=== PATIENT | female | born 1945 | race Caucasian/White ===

== ENCOUNTER 2019-04-10 15:44 | Emergency (ER) | payer MEDICARE ==
[~2019-04-10] VITALS: Ht 175.3 cm; Wt 84.8 kg
--- OUTSIDE RECORDS SUMMARY | 2019-04-10 15:46 | XMS ---
PreManage Notification: DANNY VARGAS Security Certified Travel Counselor Events No recent Security Events currently on file CRITERIA MET - 6 ED Visits in 6 Months - [facility] - 3 Facilities in 90 Days - PDMP - [facility] - 2 Visits in 30 Days CARE PROVIDERS LEIGHA YING [facility] Current PHONE: Unknown LEIGHA YING Primary [facility] Current PHONE: Unknown MALACHI OWEN Primary Care Current PHONE: Unknown Anabella has no Care Guidelines for this patient. E.DYenni VISIT COUNT (12 MO.) [facility] Ravin Keita 1 Fili [facility] Gal[facility] TOTAL 12 NOTE: Visits indicate total known visits. ED/UCC VISIT TRACKING (12 MO.) 04/10/2019 15:45 DAVID [facility]ante [place] TYPE: Emergency COMPLAINT: - RESTLESS LEGS 04/07/2019 17:39 [facility] [place] TYPE: Emergency COMPLAINT: - Shoulder Pain DIAGNOSES: - Shoulder Pain - Cellulitis of right toe - Unspecified sprain of left shoulder joint, initial encounter - Fall - Back Pain 04/06/2019 19:45 [facility] TYPE: Emergency COMPLAINT: - Restless leg discomfort DIAGNOSES: - Restless Leg Syndrome - Restless leg discomfort - Restless legs syndrome 03/25/2019 09:03 [facility] Anita JULIAN TYPE: Emergency DIAGNOSES: - Epistaxis - Nose bleed - Epistaxis 02/19/2019 12:11 [facility] Anita JULIAN TYPE: Emergency DIAGNOSES: - nose bleed - Epistaxis Re-evaluation - Epistaxis 02/17/2019 08:05 Fili LeungYenni MANUEL [facility]ECKER [facility]Y TYPE: Emergency DIAGNOSES: - Epistaxis - Epistaxis - nose bleed 02/12/2019 10:08 [facility] [place] TYPE: Urgent Care DIAGNOSES: - Presence of right artificial hip joint - Displaced fracture of lesser trochanter of right femur, initial encounter for closed fracture - Fall - Lower abdominal pain, unspecified 01/03/2019 21:46 Ravin JULIAN TYPE: Emergency DIAGNOSES: - Acute pharyngitis, unspecified - Sore Throat - Acute upper respiratory infection, unspecified - Cough - Other viral agents as the cause of diseases classified elsewhere - sore throat,cough,bodyaches 11[facility]29/2018 [facility] DIAGNOSES: - Finger Laceration - Finger lac - skilled nursing (current) use of anticoagulants - Laceration without foreign body of left thumb without damage to nail, initial encounter 06/20/2018 21:50 DAVID Infante [place] TYPE: Emergency COMPLAINT: - R LEG SWELLING/POST OP ISSUE DIAGNOSES: - Acquired absence of other left toe(s) - Other specified soft tissue disorders - Presence of right artificial knee joint - Personal history of transient ischemic attack (TIA), and cerebral infarction without residual deficits 05/06/2018 08:08 [facility] DIAGNOSES: - Encounter for change or removal of nonsurgical wound dressing - tube removal - Epistaxis Re-evaluation 05/03/2018 09:36 [facility] DIAGNOSES: - Epistaxis - Nose Bleed - Epistaxis 04/18/2018 16:16 [facility] DIAGNOSES: - Multiple Falls - Hallucinations, unspecified - Falls, Confusion - Concussion without loss of consciousness, initial encounter 04/18/2018 15:50 [facility] TYPE: Urgent Care DIAGNOSES: - Fall - Procedure and treatment not carried out due to patient leaving prior to being seen by health care provider INPATIENT VISIT TRACKING (12 MO.) 10/29/2018 06:19 [facility] TYPE: Surgical Services DIAGNOSES: - Presence of unspecified artificial hip joint - Presence of right artificial hip joint - Other instability, right hip 06/11/2018 07:36 [facility] [place] TYPE: Surgical Services DIAGNOSES: - Unilateral primary osteoarthritis, right hip [id number]
== END 2019-04-10 16:03 | disposition home or self-care (01) ==
LOC: ED 15:44
DX: G25.81 Restless legs syndrome (principal)

== ENCOUNTER 2020-04-10 10:58 | Emergency (ER) | payer MEDICARE, OTHER ==
[~2020-04-10] VITALS: Ht 172.7 cm; Wt 85.0 kg
--- OUTSIDE RECORDS SUMMARY | 2020-04-10 11:02 | XMS ---
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 E.Chanel VISIT COUNT (12 MO.) [address] [place] [address] Soledad Keita [address] [place] [address] TOTAL 6 NOTE: Visits indicate total known visits. ED/UCC VISIT TRACKING (12 MO.) 04/10/2020 10:59 DAVID Woods TYPE: Emergency COMPLAINT: - CONSTIPATION 03/28/2020 12:57 [facility] Anita JULIAN TYPE: Emergency DIAGNOSES: - Diarrhea (Adult) - abd pain - Unspecified abdominal pain - Tubulo-interstitial nephritis, not specified as acute or anode builder - Abdominal Pain 03/12/2020 12[facility]23 [facility] DIAGNOSES: - Unspecified injury of head, initial encounter - Headache (Adult - New Onset Or New Symptoms) - Altered Mental Status - Unspecified fall, initial encounter - Fall/Left Arm Pain/Head Confusion - Unspecified sprain of left wrist, initial encounter 02/01/2020 15:11 [facility] DIAGNOSES: - Fever - Fever, unspecified - Fever (75 Years Old Or >) 10/14/2019 13:35 [facility] Anita JULIAN TYPE: Emergency DIAGNOSES: - Multiple Falls - Dizziness and giddiness - Unspecified injury of right wrist, hand and finger(s), initia - Repeated falls - fall - Wrist Injury - Dizziness 06/15/2019 13:09 [facility] J[place]IAN TYPE: Urgent Care DIAGNOSES: - Cutaneous abscess of unspecified foot - Cellulitis of unspecified part of limb - Toe Pain - Non-pressure chronic ulcer of other part of right foot with u 05/14/2019 19:28 [facility] Anita JULIAN TYPE: Emergency DIAGNOSES: - Chest pain/High BP - Unspecified abdominal pain - Chest Pain - Calculus of gallbladder without cholecystitis without obstruc 05/14/2019 19:09 [facility] TYPE: Urgent Care DIAGNOSES: - Procedure and treatment not carried out due to patient leavin - Hypertension 04/10/2019 19:12 [facility] DIAGNOSES: - Restless Legs - Multiple Falls - Dystonia, unspecified - Periodic limb movement disorder - Weakness - Encephalopathy, unspecified - Insomnia, unspecified - Abnormal levels of other serum enzymes - Hallucinations, unspecified - Hallucinations - bilateral leg pain restless leg 04/10/2019 15:45 [facility]ID [facility] [place] TYPE: Emergency COMPLAINT: - RESTLESS LEGS DIAGNOSES: - Restless legs syndrome INPATIENT VISIT TRACKING (12 MO.) No inpatient visits to display in this time frame [email or web address]
--- NOTE | 2020-04-10 13:13 | EKG ---
[facility] [address] [place], [place] [address] Signed Atrial fibrillation with rapid ventricular response Inferior infarct , age undetermined Cannot rule out Anterior infarct , age undetermined Abnormal ECG No previous ECGs available Confirmed by ANN RAM MD ([id number]) on 04/10/2020 1:13:35 PM Electronically Signed By: ANN RAM MD 04/10/20 1313 PATIENT NAME: DANNY VARGAS Electrocardiogram DATE OF : 41 PHYSICIAN: ANN RAM MD REPORT #: [id number] REPORT IS CONFIDENTIAL AND NOT TO BE RELEASED WITHOUT AUTHORIZATION
[2020-04-10] MEDS ORDERED: FUROSEMIDE20 MG PO (13:34)
[2020-04-10] MEDS ORDERED: POTASSIUM CHLO20 ME1 PO (13:35)
[2020-04-10] MEDS ORDERED: PRAMIPEXOLE DIHY1 MG PO (13:36)
[2020-04-10] MEDS ORDERED: SERTRALINE HCL100 MG PO (13:37)
[2020-04-10] MEDS ORDERED: XARELTO20 MG PO (13:38)
[2020-04-10] MEDS ORDERED: OXYCODONE-ACET1 EAC1 PO (13:39)
[2020-04-10] MEDS ORDERED: DOCUSATE SODIU100 MG PO (13:42)
[2020-04-10] MEDS ORDERED: FERROUS SULFAT325 MG PO (13:43)
[2020-04-10] MEDS ORDERED: MAGNESIUM OXID400 M1 PO (13:44)
[2020-04-10] MEDS ORDERED: MIRAPEX1 MG PO (13:44)
[2020-04-10] MEDS ORDERED: METOPROLOL TART50 MG PO (13:44)
[2020-04-10] MEDS ORDERED: SULFAMETHOXAZO1 EAC1 PO (19:26)
== END 2020-04-10 22:11 | disposition short-term general hospital (02) ==
LOC: ED 10:58
DX: M00.9 Pyogenic arthritis, unspecified (principal); R10.9 Unspecified abdominal pain; I48.91 Unspecified atrial fibrillation; E87.1 Hypo-osmolality and hyponatremia; Z86.73 Personal history of transient ischemic attack (TIA), and cerebral infarction without residual deficits; Z88.8 Allergy status to other drugs, medicaments and biological substances; Z79.899 Other long term (current) drug therapy
CPT/HCPCS: 71045; 73610; 74177; 80053; 81001; 82150; 83605; 83690; 85025; 85651; 93005; 93010; 99285-25; Q9967

== ENCOUNTER 2020-11-29 14:20 | Emergency (ER) | payer MEDICARE, OTHER ==
[~2020-11-29] VITALS: Ht 172.7 cm; Wt 68.2 kg
[~2020-11-29 14:20] MED LIST: DOCUSATE SODIU100 MG PO; FERROUS SULFAT325 MG PO; FUROSEMIDE20 MG PO; MAGNESIUM OXID400 M1 PO; METOPROLOL TART50 MG PO; MIRAPEX1 MG PO; OXYCODONE-ACET1 EAC1 PO; POTASSIUM CHLO20 ME1 PO; PRAMIPEXOLE DIHY1 MG PO; SERTRALINE HCL100 MG PO; SULFAMETHOXAZO1 EAC1 PO; XARELTO20 MG PO
--- NOTE | 2020-11-30 03:12 | EKG ---
[facility] [address] [facility] [facility] [place] [address] Signed Atrial-paced rhythm with prolonged AV conduction Possible Inferior infarct (cited on or before 10-APR-2020) Abnormal ECG When compared with ECG of 10-APR-2020 11:37, Electronic atrial pacemaker has replaced Atrial fibrillation Minimal criteria for Anterior infarct are no longer present Nonspecific T wave abnormality, improved in Anterolateral leads Confirmed by NESHA HORTON MD ([id number]) on 11/30/2020 3:12:32 AM Electronically Signed By: NESHA HORTON MD 11/30/20 031 PATIENT NAME: DANNY VARGAS Electrocardiogram DATE OF : 41 PHYSICIAN: NESHA HORTON MD REPORT #: [id number] REPORT IS CONFIDENTIAL AND NOT TO BE RELEASED WITHOUT AUTHORIZATION
== END 2020-11-29 16:37 | disposition home or self-care (01) ==
LOC: ED 14:20
DX: R07.9 Chest pain, unspecified (principal); I50.9 Heart failure, unspecified; I48.91 Unspecified atrial fibrillation; Z88.8 Allergy status to other drugs, medicaments and biological substances; Z79.899 Other long term (current) drug therapy; Z79.01 Long term (current) use of anticoagulants
CPT/HCPCS: 71045; 80053; 83735; 84484; 85025; 85610; 93005; 93010; 99285-25

== ENCOUNTER 2020-12-28 08:29 | Emergency (ER) | payer MEDICARE, OTHER ==
[~2020-12-28] VITALS: Ht 172.7 cm; Wt 68.2 kg
--- OUTSIDE RECORDS SUMMARY | 2020-12-28 08:46 | XMS ---
PreManage Notification: DANNY VARGAS Security Surgery Attendant Events No recent Security Events currently on file CRITERIA MET - [facility] - 2 Visits in 30 Days CARE PROVIDERS DEONNA Valle [facility] Current PHONE: [phone] Román ANDERSEN Nurse Practitioner: Family Current PHONE: [phone] CHELSEY REYES [facility] Current PHONE: [phone] Anabella has no Care Guidelines for this patient. EScarlet VISIT COUNT (12 MO.) 3 [facility]ado 4 [facility] Pink Vanessa TOTAL 10 NOTE: Visits indicate total known visits. ED/UCC VISIT TRACKING (12 MO.) 12/28/2020 08:29 DAVID [facility]ante [place] TYPE: Emergency COMPLAINT: - R SIDE ABDOMINAL PAIN 12/26/2020 [facility] DIAGNOSES: - Bacteremia - Decreased white blood cell count, unspecified - keno terminal operator (current) use of antibiotics - Extradural and subdural abscess, unspecified - Abdominal Pain - Right upper quadrant pain - Chronic kidney disease, stage 1 - Unspecified abdominal pain - Osteomyelitis of vertebra, thoracic region - Methicillin resistant Staphylococcus aureus infection as the cause of diseases classified elsewhere - stomach pain 11/29/2020 14:21 DAVID [facility] [place] TYPE: Emergency COMPLAINT: - CHEST PAIN, FATIGUE, DROOPINESS DIAGNOSES: - Other exterminator helper termite (current) drug therapy - keno terminal operator (current) use of anticoagulants - Chest pain, unspecified - Unspecified atrial fibrillation - Allergy status to other drugs, medicaments and biological substances - Heart failure, unspecified 06/16/2020 16:57 Mario [facility] TYPE: Emergency DIAGNOSES: - Abdominal Pain 06/02/2020 18:32 Mario [facility] TYPE: Emergency DIAGNOSES: - Acute pyelonephritis - Leg Pain 05/04/2020 10:56 Mario Ly [place] TYPE: Emergency DIAGNOSES: - Chest pain, unspecified - Chest Pain 04/10/2020 10:59 DAVID [facility]ante [place] TYPE: Emergency COMPLAINT: - ANKLE PN DIAGNOSES: - Pain in right ankle and joints of right foot - Allergy status to other drugs, medicaments and biological substances - Personal history of transient ischemic attack (TIA), and cerebral infarction without residual deficits - Hypo-osmolality and hyponatremia - Pyogenic arthritis, unspecified - Unspecified abdominal pain - Other exterminator helper termite (current) drug therapy - Unspecified atrial fibrillation 03/28/2020 12:57 [facility] DIAGNOSES: - Diarrhea (Adult) - abd pain - Unspecified abdominal pain - Tubulo-interstitial nephritis, not specified as acute or chronic - Abdominal Pain 03/12/2020 12:23 [facility] DIAGNOSES: - Unspecified injury of head, initial encounter - Headache (Adult - New Onset Or New Symptoms) - Altered Mental Status - Unspecified fall, initial encounter - Fall/Left Arm Pain/Head Confusion - Unspecified sprain of left wrist, initial encounter 02/01/2020 15:11 [facility] DIAGNOSES: - Fever - Fever, unspecified - Fever (75 Years Old Or >) INPATIENT VISIT TRACKING (12 MO.) 06/21/2020 04:42 [facility] TYPE: General Medicine DIAGNOSES: 92743. Methicillin susceptible Staphylococcus aureus infection, unspecified site 33478. Osteomyelitis, unspecified 93764. Osteomyelitis of the spine 82386. Bacteremia 61124. Osteomyelitis, unspecified 49152. keno terminal operator (current) use of antibiotics 72798. Methicillin susceptible Staphylococcus aureus infection, unspecified site 70885. Methicillin resistant Staphylococcus aureus infection as the cause of diseases classified elsewhere 06/16/2020 16:57 Mario Ly [place] TYPE: Medical Surgical COMPLAINT: - Abdominal Pain DIAGNOSES: - Abdominal Pain 04/21/2020 00:28 [facility] TYPE: Internal Medicine DIAGNOSES: 49815. Bacteremia 55695. infected pacemaker 74092. Intraspinal abscess and granuloma 53354. Bacteremia 04/11/2020 00:52 [facility] TYPE: Inpatient DIAGNOSES: 0. AFIB WITH RVR [email or web address]
== END 2020-12-28 12:12 | disposition home or self-care (01) ==
LOC: ED 08:29
DX: K59.00 Constipation, unspecified (principal); I48.91 Unspecified atrial fibrillation; I50.9 Heart failure, unspecified; Z88.8 Allergy status to other drugs, medicaments and biological substances; Z79.899 Other long term (current) drug therapy
CPT/HCPCS: 76705; 80053; 81001; 83690; 85025; 96374; 99284-25; J1170; J7030

== ENCOUNTER 2021-05-31 04:28 | Emergency (ER) | payer MEDICARE, OTHER ==
--- OUTSIDE RECORDS SUMMARY | 2021-05-31 04:32 | XMS ---
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 Care History Medical/Surgical 12/29/2020 [facility] - Patient is currently established with [facility]. If patient is seen in the ED during business hours. Please contact CHWs at [facility]. Care Recommendation: If this patient has had 5 or more Emergency Department visits in the last 12 months.\T\nbsp; Patient will require education on the scope and purpose of the ED as an acute care provider not a Primary Care Provider and should not be utilized for chronic conditions.\T\nbsp; These are guidelines and the provider should exercise clinical judgment when providing care. E.D. VISIT COUNT (12 MO.) 2 Mario Mercado 2 [facility] 4 [facility] TOTAL 8 NOTE: Visits indicate total known visits. ED/UCC VISIT TRACKING (12 MO.) 05/31/2021 04:30 DAVID Infante [place] TYPE: Emergency COMPLAINT: - GLF,LACERATION LT FOREARM 04/27/2021 03[facility] DIAGNOSES: - Other group home (current) drug therapy - Unspecified fall, initial encounter - Encephalopathy, unspecified - fall head lac - Head Laceration - Fall - Restlessness and agitation - Repeated falls - Unspecified place in unspecified non-institutional (private) residence as the place of occurrence of the external cause - Contusion of scalp, initial encounter 02/14/2021 12:33 DAVID Infante [place] TYPE: Emergency COMPLAINT: - FLU SYMPTOMS 12/28/2020 08:29 DAVID [facility] [place] TYPE: Emergency COMPLAINT: - R SIDE ABDOMINAL PAIN DIAGNOSES: - Constipation, unspecified - Other group home (current) drug therapy - Allergy status to other drugs, medicaments and biological substances - Right upper quadrant pain - Unspecified atrial fibrillation - Heart failure, unspecified 12/26/2020 11:03 [facility] [place] [facility]: Emergency DIAGNOSES: - Bacteremia - Decreased white blood cell count, unspecified - terminal block assembler (current) use of antibiotics - Extradural and [...] CHEST PAIN, FATIGUE, DROOPINESS DIAGNOSES: - Other terminal operations supervisor (current) drug therapy - snf (current) use of anticoagulants - Chest pain, unspecified - Unspecified atrial fibrillation - Allergy status to other drugs, medicaments and biological substances - Heart failure, unspecified 06/16/2020 16:57 [facility]oria [facility]ig [place] TYPE: Emergency DIAGNOSES: - Abdominal Pain 06/02/2020 18:32 A[facility]ailgloria Rogelio [place] TYPE: Emergency DIAGNOSES: - Acute pyelonephritis - Leg Pain INPATIENT VISIT TRACKING (12 MO.) 06/21/2020 04:42 [facility] TYPE: General Medicine DIAGNOSES: 22253. Methicillin susceptible Staphylococcus aureus infection, unspecified site 42308. Osteomyelitis, unspecified 53430. Osteomyelitis of the spine 33267. Bacteremia 34765. Osteomyelitis, unspecified 97652. terminal block assembler (current) use of antibiotics 81870. Methicillin susceptible Staphylococcus aureus infection, unspecified site 90167. Methicillin resistant Staphylococcus aureus infection as the cause of diseases classified elsewhere 06/16/2020 16:57 Leggloria [facility] TYPE: Medical Surgical COMPLAINT: - Abdominal Pain DIAGNOSES: - Abdominal Pain [id number]
== END 2021-05-31 05:30 | disposition home or self-care (01) ==
LOC: ED 04:28
DX: S51.812A Laceration without foreign body of left forearm, initial encounter (principal); S40.022A Contusion of left upper arm, initial encounter; I50.9 Heart failure, unspecified; I48.91 Unspecified atrial fibrillation; Z86.73 Personal history of transient ischemic attack (TIA), and cerebral infarction without residual deficits; Z95.0 Presence of cardiac pacemaker; Z96.653 Presence of artificial knee joint, bilateral; Z89.422 Acquired absence of other left toe(s); Z89.421 Acquired absence of other right toe(s); Z88.8 Allergy status to other drugs, medicaments and biological substances; Z79.899 Other long term (current) drug therapy; Z23 Encounter for immunization; Z79.01 Long term (current) use of anticoagulants; W19.XXXA Unspecified fall, initial encounter; Y92.009 Unspecified place in unspecified non-institutional (private) residence as the place of occurrence of the external cause
CPT/HCPCS: 90471; 90714; 99283-25

== ENCOUNTER 2021-10-14 11:52 | Emergency (ER) | payer MEDICARE, OTHER ==
[~2021-10-14] VITALS: Ht 172.7 cm; Wt 65.9 kg
--- OUTSIDE RECORDS SUMMARY | 2021-10-14 11:56 | XMS ---
PreManage Notification: DANNY VARGAS Security English Adjunct Faculty Events 1 event(s) in the past 18 months Most recent security events: Elopement at [facility] 02/14/2021 12:33 - Other Details: PATIENT LWBS CRITERIA MET - PDMP - ED - Positive COVID-19 Lab Result - OHA - [facility] - 2 Visits in 30 Days - [facility] - Has Care Guidelines CARE PROVIDERS DEONNA Valle [facility] Current PHONE: [phone] ADITI AC [facility] 12/29/2020-Current PHONE: [phone] Román ANDERSEN Nurse Practitioner: Family Current PHONE: [phone] [facility] PHONE: [phone] Anabella has no Care Guidelines for this patient. Care History Medical/Surgical 06/02/2021 [facility] Patient seen by PCP Dr. Ac today, 06/02/2021 for ER follow up . 12/29/2020 [facility] - Patient is currently established with [facility]. If patient is seen in the ED during business hours. Please contact CHWs at [facility]. Care Recommendation: If this patient has had [...] providing care. E.D. VISIT COUNT (12 MO.) 1 [facility] 2 [facility] 5 [facility]. TOTAL 8 NOTE: Visits indicate total known visits. ED/UCC VISIT TRACKING (12 MO.) 10/14/2021 11:53 DAVID Infante [place] TYPE: Emergency COMPLAINT: - NOSE BLEED 10/06/2021 14:26 [facility] [place] . TYPE: Emergency COMPLAINT: - bloody nose DIAGNOSES: - Epistaxis - bloody nose - Epistaxis 05/31/2021 04:30 DAVID Infante [place] TYPE: Emergency COMPLAINT: - GLF,LACERATION LT FOREARM DIAGNOSES: - Unspecified atrial fibrillation - senior living (current) use of anticoagulants - Contusion of left upper arm, initial encounter - Acquired absence of other left toe(s) - Presence of artificial knee joint, bilateral - Encounter for immunization - Unspecified fall, initial encounter - Presence of cardiac pacemaker - Unspecified place in unspecified non-institutional (private) residence as the place of occurrence of the external cause - Allergy status to other drugs, medicaments and biological substances - Acquired absence of other right toe(s) - Heart failure, unspecified - Personal history of transient ischemic attack (TIA), and cerebral infarction without residual deficits - Laceration without foreign body of left forearm, initial encounter - Other sole tacker (current) drug therapy 04/27/2021 03:[address] [facility] [address] DIAGNOSES: - Other fci (current) drug therapy - Unspecified fall, initial [...] PAIN DIAGNOSES: - Constipation, unspecified - Other sole tacker (current) drug therapy - Allergy status to other drugs, medicaments and biological substances - Right upper quadrant pain - Unspecified atrial fibrillation - Heart failure, unspecified 12/26/2020 11:03 [facility] Anita JULIAN TYPE: Emergency DIAGNOSES: - Bacteremia - Decreased white blood cell count, unspecified - machine sander (current) use of antibiotics - Extradural and subdural abscess, unspecified - Abdominal Pain - Right upper quadrant pain - Chronic kidney disease, stage 1 - Unspecified abdominal pain - Osteomyelitis of vertebra, thoracic region - Methicillin resistant Staphylococcus aureus infection as the cause of diseases classified elsewhere - stomach pain 11/29/2020 14:21 [facility] [address] [facility] TYPE: Emergency COMPLAINT: - CHEST PAIN, FATIGUE, DROOPINESS DIAGNOSES: - Other fci (current) drug therapy - machine sander (current) use of anticoagulants - Chest pain, unspecified - Unspecified atrial fibrillation - Allergy status to other drugs, medicaments and biological substances - Heart failure, unspecified INPATIENT VISIT TRACKING (12 MO.) No inpatient visits to display in this time frame [id number]
[2021-10-14] MEDS ORDERED: ELIQUIS5 MG PO (12:08)
[2021-10-14] MEDS ORDERED: IPRATROPIUM BRO30 ML NAS (12:08)
[2021-10-14] MEDS ORDERED: OMEPRAZOLE40 MG PO (12:09)
[2021-10-14] MEDS ORDERED: GABAPENTIN600 MG PO (12:09)
[2021-10-14] MEDS ORDERED: OXYBUTYNIN CHLO10 MG PO (12:09)
== END 2021-10-14 15:29 | disposition home or self-care (01) ==
LOC: ED 11:52
DX: R04.0 Epistaxis (principal); Z86.73 Personal history of transient ischemic attack (TIA), and cerebral infarction without residual deficits; I48.91 Unspecified atrial fibrillation; I50.9 Heart failure, unspecified; Z79.899 Other long term (current) drug therapy; Z88.8 Allergy status to other drugs, medicaments and biological substances; Z79.01 Long term (current) use of anticoagulants
CPT/HCPCS: 30901; 99283-25

== ENCOUNTER 2022-05-15 08:42 | Emergency (ER) | payer MEDICARE, OTHER ==
[~2022-05-15] VITALS: Ht 172.7 cm; Wt 73.5 kg
[~2022-05-15 08:42] MED LIST changes: +ELIQUIS5 MG PO; +GABAPENTIN600 MG PO; +IPRATROPIUM BRO30 ML NAS; +MIRAPEX0.5 MG PO; +OMEPRAZOLE40 MG PO; +OXYBUTYNIN CHLO10 MG PO
--- OUTSIDE RECORDS SUMMARY | 2022-05-15 08:44 | XMS ---
PreManage Notification: DANNY VARGSA Security Crime Specialist Events 1 event(s) in the past 18 months Most recent security events: Elopement at [facility] 02/14/2021 12:33 - Other Details: PATIENT LWBS CRITERIA MET - PDMP - [facility] - Has Care Guidelines CARE PROVIDERS DEONNA Valle [facility] Current PHONE: [phone] SHERIN AGRAWAL Orthopaedic Surgery Tamra Abdi PHONE: [phone] ADITI AC [facility] 12/29/2020-Current PHONE: Unknown Román ANDERSEN Nurse Practitioner: Family Current PHONE: [phone] AMY [facility] Current PHONE: [phone] Anabella has no Care Guidelines for this patient. Care History Medical/Surgical 06/02/2021 [facility] Patient seen by PCP Dr. Ac today, 06/02/2021 for ER follow up . 12/29/2020 [facility] - Patient is currently established with [facility]. If patient is seen in the ED during business hours. Please contact CHWs at [facility]. Care Recommendation: If this patient has [...] care. E.D. VISIT COUNT (12 MO[address] [facility]. 6 [facility]. TOTAL 7 NOTE: Visits indicate total known visits. ED/UCC VISIT TRACKING (12 MO.) 05/15/2022 08:43 [facility] [place] TYPE: Emergency COMPLAINT: - R KNEE PAIN 03/14/2022 10:47 [facility] [place] TYPE: Emergency COMPLAINT: - UNCONTROLLABLE SHAKING, FATIGUE DIAGNOSES: - Restless legs syndrome 02/07/2022 16:22 [facility] [place] TYPE: Emergency COMPLAINT: - FALL DIAGNOSES: - Presence of cardiac pacemaker - Fall from bed, initial encounter - shelter (current) use of anticoagulants - Strain of muscle, fascia and tendon at neck level, initial encounter - Personal history of transient ischemic attack (TIA), and cerebral infarction without residual deficits - Contusion of scalp, initial encounter - Presence of artificial knee joint, bilateral - Allergy status to other drugs, medicaments and biological substances - Other parts counterman (current) drug therapy - Headache, unspecified - Heart failure, unspecified 02/07/2022 14:36 [facility] TYPE: Emergency COMPLAINT: - FALL 10/14/2021 11:53 [facility] [place] TYPE: Emergency COMPLAINT: - NOSE BLEED DIAGNOSES: - Allergy status to other drugs, medicaments and biological substances - Unspecified atrial fibrillation - Other care home (current) drug therapy - terminal operator (current) use of anticoagulants - Heart failure, unspecified - Personal history of transient ischemic attack (TIA), and cerebral infarction without residual deficits - Epistaxis 10/06/2021 14:26 [facility] [place] TYPE: Emergency COMPLAINT: - bloody nose DIAGNOSES: - bloody nose - Epistaxis - Epistaxis 05/31/2021 04:30 [facility] [place] TYPE: Emergency COMPLAINT: - GLF,LACERATION LT FOREARM DIAGNOSES: - Other parts counterman (current) drug therapy - Encounter for immunization - Personal history of transient ischemic attack (TIA), and cerebral infarction without residual deficits - Acquired absence of other left toe(s) - Acquired absence of other right toe(s) - terminal operator (current) use of anticoagulants - Unspecified place in unspecified non-institutional (private) residence as the place of occurrence of the external cause - Unspecified fall, initial encounter - Laceration without foreign body of left forearm, initial encounter - Presence of artificial knee joint, bilateral - Heart failure, unspecified - Contusion of left upper arm, initial encounter - Allergy status to other drugs, medicaments and biological substances - Unspecified atrial fibrillation - Presence of cardiac pacemaker INPATIENT VISIT TRACKING (12 MO.) No inpatient visits to display in this time frame [email or web address]
[2022-05-15] MEDS ORDERED: HYDROCODON-ACE1 EA10 PO (09:20)
== END 2022-05-15 09:38 | disposition home or self-care (01) ==
LOC: ED 08:42
DX: M25.561 Pain in right knee (principal); I50.9 Heart failure, unspecified; I48.91 Unspecified atrial fibrillation; Z88.8 Allergy status to other drugs, medicaments and biological substances; Z79.899 Other long term (current) drug therapy
CPT/HCPCS: 73560; 99283-25

== ENCOUNTER 2022-06-14 06:55 | Day surgery (SDC) | payer MEDICARE, OTHER ==
[~2022-06-14] VITALS: Ht 172.7 cm; Wt 74.1 kg
[~2022-06-14 06:55] MED LIST changes: +HYDROCODON-ACE1 EA10 PO
[2022-06-14] MEDS ORDERED: SOLIFENACIN SUC10 MG PO (07:24)
[2022-06-14] MEDS ORDERED: CALCIUM500 MG PO (07:27)
--- NOTE | 2022-06-14 08:42 | NUR ---
06/14/22 0842 Octavia Hanson 0848-PATIENT ARRIVED TO PACU ON RA EVEN HOB ELEVATED. PATIENT NONAROUSABLE O2 MONITOR CONNECTED AND O2 DESAT TO LOW 80'S. PATIENT WAS JAW THRUSTED BY CAROLINA SALINAS AND MOUTH SUCTIONED SMALL AMT OF BLOOD IN SUCTION TUBING. PATIENT PLACED ON O2 MASK 13L. RN AUSCULTATED LUNGS CLEAR. RR 24.
--- NOTE | 2022-06-14 12:04 | NUR ---
1120: PT TO DS RM 7 FROM PACU VIA STRETCHER FOR OBSERVATION. DAUGHTER IN ROOM ON ARRIVAL. PT ON 2L VIA NC ON PACU MONITOR WITH [address] CALL LIGHT WITHIN REACH WITH CURTAIN OPENED. 1140: DR. RAM NOTIFIED ABOUT DIET STATUS, STATES TO CALL DR. WEST. PER DR. WEST'S ORDERS REGULAR DIET, PROVIDED SOFT FOOD APPLESAUCE. NOT ABLE TO KEEP DOWN, HAS APPROX 75 MLS EMESIS WITH FOOD PARTICLES FROM LAST NIGHT.
--- NOTE | 2022-06-14 12:20 | NUR ---
DR RAM HOSPITALIST IN TO SEE PT.
--- NOTE | 2022-06-14 13:01 | NUR ---
1250: PT DAUGHTER BACK IN TO PT ROOM AT THIS TIME. PT RESTING WITH EYES CLOSED, CONT ON 2L VIA NC SATS GREATER THAN 90%. TACHYPNIC WITH RATE OF 24-32. PT AROUSES EASILY WITH VERBAL STIMULATION. WILL PLAN TO GET PT UP AND AMBULATE HALLWAY AND USE BATHROOM, PT AGREEABLE. CALL LIGHT WITHIN REACH.
--- NOTE | 2022-06-14 14:32 | NUR ---
1339: DR. WEST IN ROOM CONVERSING WITH PT AND DAUGHTER AT BEDSIDE. 1355: PT UP TO BATHROOM WITH RN ASSIST AND USE OF PERSONAL CANE, ABLE TO VOID QS YELLOW URINE. PT STATES HEADACHE IS WORSE BEING UPRIGHT AND THIS RN CALLS DR. WEST FOR IV PAIN MEDS. ORDERS INPUT INTO [facility]; SEE EMAR. 1420: PT RESTING IN STRETCHER WITH EYES CLOSED, BREATHING THROUGH MOUTH. CONT PULSE OXIMETER IN PLACE, SATS 96% ON RA. CALL LIGHT WITHIN REACH AND DAUGHTER AT BEDSIDE.
--- NOTE | 2022-06-14 16:14 | NUR ---
[id number]: PT UP AMBULATING HALLWAY WITH 2 RN ASSIST WITH PERSONAL WALKER, STEADY GAIT AND ABLE TO TOLERATE. BACK TO DS RM 7 TO GET DRESSED WITH DAUGHTER AT BEDSIDE. DR. WEST CALLED WITH PT STATUS AND VERBALIZES THAT PT MAY DC HOME. DC INSTRUCTIONS PRESENTED VERBALLY AND WRITTEN TO PT AND DAUGHTER. PT DC VIA WC PUSHED BY JOSIAH REINOSO TO DAUGHTER'S VEHICLE TO HOME. PT VOICES THAT DAUGHTER WILL STAY THE NIGHT WITH HER TONIGHT SHE LIVES ALONE.
--- NOTE | 2022-06-15 05:50 | OR ---
[facility] [address], [place] [address] Signed DATE OF OPERATION: 06/14/2022 SURGEON: Yara West MD PREOPERATIVE DIAGNOSES: 1. Mid esophageal dysphagia. 2. Gastroesophageal reflux disease. 3. Vomiting. 4. Cervical fusion. POSTOPERATIVE DIAGNOSES: 1. Esophageal foreign body (meat) throughout the esophagus. 2. Mild diffuse gastritis. PROCEDURES: Esophagogastroduodenoscopy with CLOtest and biopsies of the antrum. ESTIMATED BLOOD LOSS: None. INDICATIONS: Danny is a 76-year-old female who complains about mid esophageal dysphagia and vomiting of foam. She went through an anterior cervical fusion through the left anterior approach. 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 She has trouble rotating her head at this point. She underwent a modified barium swallow with our speech pathologist. No specific recommendations were given other than upper endoscopy because of the history of mid esophageal dysphagia and acid reflux. Danny told me the symptoms have not improved. She ate supper last night around 8 p.m. That would be 12 hours previously. In the office, I gave her a pamphlet on upper endoscopy. We had reviewed the nature of the test. There is risk including, but not limited to gas bloating, crampy abdominal pain, bleeding, perforation requiring surgery, and missed diagnosis. We also reviewed the need for monitored anesthesia care given her advanced age, decreased cervical mobility and her advanced medical issues including her atrial fibrillation requiring her pacemaker. She had expressed understanding and wished to proceed. PROCEDURE IN DETAIL: Danny was taken in the endoscopy suite and placed in the supine semi-recumbent position. She was given monitored anesthesia care with propofol per our nurse dye and chemical coordinator. A bite block was utilized for the case. The adult gastroscope was Electronically Signed By: YARA WEST MD 06/15/22 0550 PATIENT NAME: DANNY VARGAS OPERATIVE REPORT DATE OF : 41 REPORT #: [id number] PHYSICIAN: YARA WEST MD PCP: CARINA KURTZ MD REPORT IS CONFIDENTIAL AND NOT TO BE RELEASED WITHOUT AUTHORIZATION [facility] [address], [place] [address] Signed introduced and advanced under direct visualization of camera. She had dry viscous saliva throughout her mouth in the posterior oropharynx. Vocal cord seemed to be unremarkable. We passed the scope into the esophagus and we immediately encountered food. It appears to be chicken. It was very difficult to pass the scope. We had to go very slowly down the esophagus and eventually made our way out into the stomach. We advanced down the antrum and out in the duodenum. The duodenum and pyloric channel were unremarkable. She had just a little bit of food and liquid in the stomach. She had diffuse erythematous changes throughout the stomach. We went and took a single biopsy of the antrum for CLOtest as well as pathologic review. She stopped her Eliquis three days prior to the procedure. We generally have that five days prior to the procedure. She did bleed a little bit from the biopsies. Upon retroflexion of scope I really could not appreciate a hiatal hernia. The scope was withdrawn up through the area of the GE junction, which was compliant without stricture. There was no gastric or esophageal varices that we could notice. Her Z-line is relatively intact. Once again, the entire esophagus was at least 50% if not more full of food and particulate matter. We did not feel it was safe at this time to go ahead and do a biopsy from the esophagus. We did not notice any obvious stricture. Once back in the posterior oropharynx we suctioned out some saliva and withdrew the scope. Overall, Danny tolerated the procedure quite well. RECOMMENDATIONS: I will see Danny back in my office in 7 to 14 days to review her results. I think we are going to repeat the simple barium swallow. We may do a gastric emptying scan, although the stomach was empty this morning. She probably needs esophageal manometry and probably needs a 24 hour pH testing. MD NISSA Mcmullen/PAIGEL /[id number] cc: MD Carina Mcmullen MD Electronically Signed By: YARA WEST MD 06/15/22 0550 PATIENT NAME: DANNY VARGAS OPERATIVE REPORT DATE OF : 41 REPORT #: [id number] PHYSICIAN: YARA WEST MD PCP: CARINA KURTZ MD REPORT IS CONFIDENTIAL AND NOT TO BE RELEASED WITHOUT AUTHORIZATION [address] [address] Signed Copies: YARA WEST MD ~ Electronically Signed By: YARA WEST MD 06/15/22 0550 PATIENT NAME: DANNY VARGAS OPERATIVE REPORT DATE OF : 41 REPORT #: [id number] PHYSICIAN: YARA WEST MD PCP: CARINA KURTZ MD REPORT IS CONFIDENTIAL AND NOT TO BE RELEASED WITHOUT AUTHORIZATION
--- NOTE | 2022-06-15 19:24 | EKG ---
[facility] [address] [facility] [place] [address] Signed Atrial-paced rhythm Cannot rule out Inferior infarct , age undetermined Abnormal ECG When compared with ECG of 07-JUN-2022 14:40, Sinus rhythm has replaced Electronic atrial pacemaker Confirmed by ANN RAM MD ([id number]) on 06/15/2022 7:24:15 PM Electronically Signed By: ANN RAM MD 06/15/22 192 PATIENT NAME: DANNY VARGAS Electrocardiogram DATE OF : 41 PHYSICIAN: ANN RAM MD REPORT #: [id number] REPORT IS CONFIDENTIAL AND NOT TO BE RELEASED WITHOUT AUTHORIZATION
== END 2022-06-14 15:30 | disposition home or self-care (01) ==
LOC: DS 06:55 → OPS 06:55 → DS 08:10 → OPS 08:10 → DS 11:15 → OPS 15:30
PROVIDERS: ATTEND Colon & Rectal Surgery
PROC: 0DB68ZX Excision of Stomach, Via Natural or Artificial Opening Endoscopic, Diagnostic (ICD-10-PCS; principal; 2022-06-14 08:10)
DX: K29.70 Gastritis, unspecified, without bleeding (principal); T18.128A Food in esophagus causing other injury, initial encounter; Z98.1 Arthrodesis status; K21.9 Gastro-esophageal reflux disease without esophagitis; I48.91 Unspecified atrial fibrillation; I50.9 Heart failure, unspecified; Z95.0 Presence of cardiac pacemaker; Z96.653 Presence of artificial knee joint, bilateral; K31.9 Disease of stomach and duodenum, unspecified
CPT/HCPCS: 00731; 36415; 71045; 80053; 82553; 83880; 84484; 85025; 87077; 93005; 93010; J0131; J0690; J2704; J7121

== ENCOUNTER 2022-07-04 15:31 | Emergency (ER) | payer MEDICARE, OTHER ==
[~2022-07-04] VITALS: Ht 172.7 cm; Wt 74.0 kg
[~2022-07-04 15:31] MED LIST changes: +CALCIUM500 MG PO; +SOLIFENACIN SUC10 MG PO
--- OUTSIDE RECORDS SUMMARY | 2022-07-04 15:34 | XMS ---
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 - Has Care Guidelines CARE PROVIDERS DEONNA Valle [facility] Current PHONE: [phone] SHERIN AGRAWAL Orthopaedic Surgery Tamra Abdi PHONE: [phone] ADITI AC [facility] 12/29/2020-Current PHONE: Unknown Román ANDERSEN Nurse Practitioner: Family Current PHONE: [phone] AMY [facility] Current PHONE: [phone] Anabella has no Care Guidelines for this patient. Care History Medical/Surgical 06/02/2021 [facility] Patient seen by PCP Dr. Ac today, 06/02/2021 for ER follow up . 12/29/2020 [facility] - Patient is currently established with [facility]. If patient is seen in the ED during business hours. Please contact CHWs at [facility]. Care Recommendation: If this patient has had [...] care. E.D. VISIT COUNT (12 MO.) 1 [facility]. 6 [facility]. TOTAL 7 NOTE: Visits indicate total known visits. ED/UCC VISIT TRACKING (12 MO.) 07/04/2022 15:32 [facility] [place] TYPE: Emergency COMPLAINT: - FALL, RACING HEART 05/15/2022 08:43 [facility] [place] TYPE: Emergency COMPLAINT: - R KNEE PAIN DIAGNOSES: - Unspecified atrial fibrillation - Allergy status to other drugs, medicaments and biological substances - Heart failure, unspecified - Pain in right knee - Other computer terminal operator (current) drug therapy 03/14/2022 10:47 [facility] [place] TYPE: Emergency COMPLAINT: - UNCONTROLLABLE SHAKING, FATIGUE DIAGNOSES: - Restless legs syndrome 02/07/2022 16:22 [facility] [place] TYPE: Emergency COMPLAINT: - FALL DIAGNOSES: - Allergy status to other drugs, medicaments and biological substances - Other shelter (current) drug therapy - Headache, unspecified - Heart failure, unspecified - Presence of cardiac pacemaker - Fall from bed, initial encounter - 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 - Strain of muscle, fascia and tendon at neck level, initial encounter - Personal history of transient ischemic attack (TIA), and cerebral infarction without residual deficits - Contusion of scalp, initial encounter - Presence of artificial knee joint, bilateral 02/07/2022 14:36 [facility] [place] TYPE: Emergency COMPLAINT: - FALL 10/14/2021 11:53 [facility] [place] TYPE: Emergency COMPLAINT: - NOSE BLEED DIAGNOSES: - Personal history of transient ischemic attack (TIA), and cerebral infarction without residual deficits - Epistaxis - Allergy status to other drugs, medicaments and biological substances - Unspecified atrial fibrillation - Other shelter (current) drug therapy - halfway (current) use of anticoagulants - Heart failure, unspecified 10/06/2021 14:26 [facility] TYPE: Emergency COMPLAINT: - bloody nose DIAGNOSES: - Epistaxis - Epistaxis - bloody nose INPATIENT VISIT TRACKING (12 MO.) No inpatient visits to display in this time frame [email or web address]
--- NOTE | 2022-07-04 21:29 | EKG ---
[facility] [address] [place] [address] Signed Atrial-paced rhythm with prolonged AV conduction Abnormal ECG When compared with ECG of 14-JUN-2022 10:28, No significant change was found Confirmed by Aleks Wiseman MD () on 07/04/2022 9:28:52 PM Electronically Signed By: ALEKS WISEMAN MD 07/04/222128 PATIENT NAME: NISSAOZZYDANNY Electrocardiogram DATE OF : 41 PHYSICIAN: ALEKS WISEMAN MD REPORT #: [id number] REPORT IS CONFIDENTIAL AND NOT TO BE RELEASED WITHOUT AUTHORIZATION
== END 2022-07-04 19:24 | disposition home or self-care (01) ==
LOC: ED 15:31
DX: E86.0 Dehydration (principal); I50.9 Heart failure, unspecified; I48.91 Unspecified atrial fibrillation; Z86.73 Personal history of transient ischemic attack (TIA), and cerebral infarction without residual deficits; Z88.8 Allergy status to other drugs, medicaments and biological substances; Z79.899 Other long term (current) drug therapy; Z79.01 Long term (current) use of anticoagulants; W19.XXXA Unspecified fall, initial encounter
CPT/HCPCS: 36415; 70450; 80048; 84484; 85025; 93005; 93010; 99284-25

== ENCOUNTER 2023-08-31 22:22 | Inpatient (IN) | payer MEDICARE, OTHER ==
[~2023-08-31] VITALS: Ht 172.7 cm; Wt 71.5 kg
[~2023-08-31 22:22] MED LIST changes: +ATORVASTATIN CA20 MG PO; +BUPROPION XL150 MG PO; +CYANOCOBAL1000 MCG/M IM; +FERROUS GLUCON324 M1 PO; -FERROUS SULFAT325 MG PO; +GABAPENTIN300 MG PO; +SILVADENE20 GM TOP; +SOTALOL80 MG PO; +VITAMIN D325 MCG PO
[2023-08-31 23:10] LABS: BASOPHILS 0.2 % (0-2); HEMOGLOBIN 12.9 g/dL (12.0-18.0); RDW 14.4 (10.5-15.0)
[2023-08-31 23:19] LABS: EOSINOPHILS 0.7 % (0-6); HEMATOCRIT 38.6 % (35.0-50.0); LYMPHOCYTES 6.4 % (24-44); MCH 31.8 (27-36); MCHC 33.3 g/dl (30-36); MCV 95.5 fl (81-99); MONOCYTES 6.9 % (0-12); NEUTROPHILS 85.8 % (39-80); PLATELET COUNT 165 K/uL (140-440); RBC 4.05 M/ul (4.3-5.7)
[2023-08-31 23:21] LABS: ALBUMIN 2.7 g/dL (3.4-5.0); ALBUMIN/GLOBULIN RATIO 0.64 (1.1-2.4); ANION GAP 16.4 (7-21); BILIRUBIN, TOTAL 0.9 ng/dL (0.2-1.0); BUN/CREATININE RATIO 16.23 (6.0-28.6); CALCIUM 8.7 mg/dL (8.5-10.1); CREATININE, SERUM 1.17 mg/dL (0.55-1.02); POTASSIUM 3.4 mmol/L (3.5-5.1); PROTEIN, TOTAL 6.9 g/dL (6.4-8.2)
[2023-08-31] MEDS ORDERED: SODIUM CHLORIDE 0.9% 1,000 ML IV SCH (23:30)
[2023-09-01] VITALS (8 sets, daily range): BP systolic 94–118; BP diastolic 51–59
[2023-09-01] MEDS ORDERED: CIPROFLOXACIN/D5W 400 MG IV ONE (00:45)
[2023-09-01] MEDS ORDERED: ondansetron HCL 4 MG/2 ML VIAL IV ONE (00:45)
[2023-09-01] MEDS ORDERED: HYDROmorphone HCL 1 MG/ML SYR IV PRN ×2 (00:45→02:00)
[2023-09-01] MEDS ORDERED: LACTATED RINGER'S 1,000 ML IV SCH ×2 (02:00→10:00)
[2023-09-01] MEDS ORDERED: ondansetron HCL 4 MG/2 ML VIAL IV PRN ×2 (02:00→10:00)
[2023-09-01] MEDS ORDERED: KETOROLAC TROMETHAMINE 15 MG/ML VIAL IV ONE (05:45)
[2023-09-01] MEDS ORDERED: POTASSIUM CHLORIDE 40 MEQ,LIDOCAINE HCL 1% 40 MG in DEXTROSE 5% 500 ML IV ONE (08:15)
[2023-09-01] MEDS ORDERED: CIPROFLOXACIN/D5W 400 MG IV SCH (09:00)
[2023-09-01] MEDS ORDERED: GLYCERIN 2 GM SUPP PR PRN (09:45)
[2023-09-01] MEDS ORDERED: POLYETHYLENE GLYCOL 3350 BOTTLE PO SCH (09:45)
[2023-09-01] MEDS ORDERED: MAGNESIUM SULFATE 2 GM/50 ML BAG IV ONE (10:15)
[2023-09-01] MEDS ORDERED: PHARMACY RENAL DOSE ADJUSTMENT 1 DOSE MISC PO SCH (12:00)
[2023-09-01] MEDS ORDERED: GLYCERIN 1 GM SUPP PR PRN (13:00)
[2023-09-01] MEDS ORDERED: ACETAMINOPHEN 650 MG SUPP PR PRN (17:45)
[2023-09-01] MEDS ORDERED: LORazepam 2 MG/ML VIAL IV ONE (21:30)
[2023-09-01 21:54] LABS: BILIRUBIN, URINE POSITIVE (negative); BLOOD/HGB, URINE NEGATIVE (Negative); KETONE, URINE NEGATIVE (Negative); LEUK ESTERASE, URINE TRACE (negative); NITRITE, URINE NEGATIVE (negative); PH, URINE 5.5 (5-7)
[2023-09-01] MEDS ORDERED: PRAMIPEXOLE DIHYDROCHLORIDE 1 MG TAB PO SCH (21:54)
[2023-09-01 22:06] LABS: RED BLOOD CELLS, URINE 0-1 /hpf (0-5)
[2023-09-01 22:07] LABS: BACTERIA, URINE 2+ /hpf (negative); CASTS, URINE HYALINE 1+ \\lpf; COLLECTION TYPE, URINE CLEAN CATCH; CRYSTALS, URINE NONE SEEN (0-1+); EPITHELIAL CELLS, URINE SQUAMOUS 1+ /lpf (0-1+); REFLEX CULTURE, URINE Yes (No)
[2023-09-02] VITALS (8 sets, daily range): BP systolic 102–117; BP diastolic 57–79
[2023-09-02 05:23] LABS: EOSINOPHILS 0.1 % (0-6); HEMOGLOBIN 11.9 g/dL (12.0-18.0); LYMPHOCYTES 6.7 % (24-44)
[2023-09-02 05:27] LABS: BASOPHILS 0.1 % (0-2); HEMATOCRIT 35.7 % (35.0-50.0); MCH 31.8 (27-36); MCHC 33.5 g/dl (30-36); MONOCYTES 7.6 % (0-12); NEUTROPHILS 85.5 % (39-80); PLATELET COUNT 150 K/uL (140-440); RBC 3.76 M/ul (4.3-5.7); RDW 14.8 (10.5-15.0)
[2023-09-02 05:40] LABS: ALBUMIN 2.2 g/dL (3.4-5.0); ALBUMIN/GLOBULIN RATIO 0.59 (1.1-2.4); ANION GAP 15.1 (7-21); BILIRUBIN, TOTAL 0.6 ng/dL (0.2-1.0); BUN/CREATININE RATIO 17.03 (6.0-28.6); CALCIUM 8.3 mg/dL (8.5-10.1); CREATININE, SERUM 1.35 mg/dL (0.55-1.02); MAGNESIUM 1.8 mg/dL (1.8-2.4); PHOSPHORUS, INORGANIC 3.5 mg/dL (2.5-4.9); POTASSIUM 3.1 mmol/L (3.5-5.1); PROTEIN, TOTAL 5.9 g/dL (6.4-8.2)
[2023-09-02] MEDS ORDERED: PRAMIPEXOLE D0.25 MG PO (07:34)
[2023-09-02] MEDS ORDERED: PRAMIPEXOLE DIHYDROCHLORIDE 0.5 MG TAB PO SCH ×2 (08:00→21:00)
[2023-09-02] MEDS ORDERED: PRAMIPEXOLE DIHYDROCHLORIDE 0.25 MG TAB PO SCH (08:00)
[2023-09-02] MEDS ORDERED: GLYCERIN 2 GM SUPP PR ONE ×2 (09:45)
--- NOTE | 2023-09-02 09:47 | CONS ---
[facility] [address] [place], [place] [address] Signed DATE OF CONSULTATION: 09/01/2023 REQUESTING PHYSICIAN: Dr. Torres. PROBLEM: Left-sided "colitis." HISTORY OF PRESENT ILLNESS: This 77-year-old white woman presented to the emergency room late last night and evaluated by Dr. Escobar with several days of constipation. Notably, she has constipation on a routine basis. She had a "hard" bowel movement a few days ago. She is having pain most dominantly on the left side. Evaluation by Dr. Escobar included a CT scan of the abdomen, which showed what was described as diffuse bowel wall thickening and pericolonic inflammatory changes involving the mid and distal transverse colon, descending colon and sigmoid, consistent with colitis. I was called late in the night regarding this. I did inquire whether there was a fair amount of stool burden and it was considered not inordinate. This is in distinction to my evaluation of the CT scan today which shows a fair amount of stool throughout the colon. The patient does admit to chronic constipation for which she takes only dulcolax tablet from time to time. She is poorly ambulatory as she falls quite a bit according to her daughter who accompanies her today. PAST MEDICAL HISTORY: Notable for chronic anticoagulation with Eliquis related to atrial fibrillation. She also has gastroesophageal reflux. She has had abdominal operation for blunt trauma, but no colonic surgery proper. CURRENT MEDICATIONS: Include Bactrim as well as Silvadene applied to a sore which I am uncertain. She additionally takes Mirapex, Lasix, potassium, sertraline, iron tablet, Eliquis, and omeprazole as well of solifenacin, calcium carbonate, vitamin B12 injection, atorvastatin, gabapentin, bupropion, sotalol, vitamin D and DSS as described. Her primary provider is Dr. Ac. REVIEW OF SYSTEMS: She denies any blood per rectum or hematemesis. She does have some abdominal pain that is not disabling. Electronically Signed By: EMERITA MOYER MD 09/02/23 0947 PATIENT NAME: DANNY VARGAS CONSULTATION DATE OF : 41 REPORT #: [id number] PHYSICIAN: EMERITA MOYER MD PCP: ADITI AC MD REPORT IS CONFIDENTIAL AND NOT TO BE RELEASED WITHOUT AUTHORIZATION [facility] [address] [place], [place] [address] Signed PHYSICAL EXAMINATION: GENERAL: This is a frail elderly woman who is alert and oriented, though difficult to grasp details of her own history. She is accompanied by her daughter. She shows no sign of toxicity. NECK: Trachea is midline. CHEST: Shows normal respiratory excursion. HEART: Pulse is irregularly irregular. ABDOMEN: Poor muscle tone, but no focal tenderness particularly. RECTAL: Performed, which showed soft stool in the rectum. No sign of "stool boulders." Sphincter tone is lax, but normal for age. LABORATORY STUDIES: Show white count of 7.4, hematocrit 38.6, platelets 165,000. Electrolytes show creatinine elevated at 1.17, potassium is 3.4. CT scan as previously noted shows a fair amount of stool in the colon and some inflammatory changes. 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 She has been admitted for further evaluation and treatment. Treatment should like revolve around the clearance of the colon. We would initiate enema therapy and stimulatory suppository. Once bowel appears to be moving, consideration will be made for a "clean out" from above. I discussed the pathophysiology of the problem with the patient and her daughter. I have also reviewed recommendations with Dr. Torres. The patient is on IV antibiotics, Cipro and Flagyl. These may be able to be withdrawn as she improves. The hazard of stercoral colitis is of course of progression of stercoral perforation for which all efforts should be made to avoid due to its high morbidity and mortality. Ultimately, colonoscopy would be undertaken to affirm the source of apparetnt left sided colitis. MD SANTOSH Conrad/HARLAN /[id number] Electronically Signed By: EMERITA MOYER MD 09/02/23 0947 PATIENT NAME: DANNY VARGAS CONSULTATION DATE OF : 41 REPORT #: [id number] PHYSICIAN: EMERITA MOYER MD PCP: ADITI AC MD REPORT IS CONFIDENTIAL AND NOT TO BE RELEASED WITHOUT AUTHORIZATION [facility] [address] [place], [place] [address] Signed cc: MD Dr. Luz Ward Copies: ~ Electronically Signed By: EMERITA MOYER MD 09/02/23 0947 PATIENT NAME: SAMDANNY MENDEZ CONSULTATION DATE OF : 41 REPORT #: [id number] PHYSICIAN: EMERITA MOYER MD PCP: ADITI AC MD REPORT IS CONFIDENTIAL AND NOT TO BE RELEASED WITHOUT AUTHORIZATION
[2023-09-02] MEDS ORDERED: LACTATED RINGER'S 500 ML IV ONE (10:15)
[2023-09-02] MEDS ORDERED: LACTATED RINGER'S 500 ML IV SCH (10:15)
[2023-09-03] VITALS (7 sets, daily range): BP systolic 103–152; BP diastolic 61–86
[2023-09-03] MEDS ORDERED: MAGNESIUM CITRATE 300 ML BTL PO ONE (10:00)
[2023-09-03 11:22] LABS: BASOPHILS 0.2 % (0-2); EOSINOPHILS 1.6 % (0-6); HEMATOCRIT 30.9 % (35.0-50.0); HEMOGLOBIN 10.7 g/dL (12.0-18.0); LYMPHOCYTES 7.1 % (24-44); MCH 32.1 (27-36); MCHC 34.6 g/dl (30-36); MONOCYTES 5.4 % (0-12); NEUTROPHILS 85.7 % (39-80); PLATELET COUNT 133 K/uL (140-440); RBC 3.32 M/ul (4.3-5.7); RDW 14.7 (10.5-15.0)
[2023-09-03] MEDS ORDERED: ALBUTEROL/IPRATROPIUM 3 ML NEB INH ONE (11:45)
[2023-09-03] MEDS ORDERED: diphenhydrAMINE HCL 50 MG/ML VIAL IV ONE (11:45)
[2023-09-03 11:54] LABS: ALBUMIN 1.8 g/dL (3.4-5.0); ALBUMIN/GLOBULIN RATIO 0.55 (1.1-2.4); ANION GAP 13.6 (7-21); BILIRUBIN, TOTAL 0.3 ng/dL (0.2-1.0); BUN/CREATININE RATIO 16.66 (6.0-28.6); CALCIUM 7.9 mg/dL (8.5-10.1); CREATININE, SERUM 0.96 mg/dL (0.55-1.02); POTASSIUM 2.6 mmol/L (3.5-5.1); PROTEIN, TOTAL 5.1 g/dL (6.4-8.2)
[2023-09-03] MEDS ORDERED: DIGOXIN 500 MCG/2 ML AMP IV ONE ×2 (12:15→23:15)
[2023-09-03] MEDS ORDERED: DEXTROSE 5% IV ONE (12:45)
[2023-09-03] MEDS ORDERED: LIDOCAINE HCL IV ONE (12:45)
[2023-09-03] MEDS ORDERED: POTASSIUM CHLORIDE IV ONE (12:45)
[2023-09-03] MEDS ORDERED: POTASSIUM CHLORIDE 40 MEQ,LIDOCAINE HCL 1% 40 MG in DEXTROSE 5% 500 ML IV SCH (13:00)
[2023-09-03] MEDS ORDERED: MAGNESIUM SULFATE 2 GM/50 ML BAG IV ONE (13:15)
[2023-09-03] MEDS ORDERED: MAGNESIUM SULFATE 1 GM/2 ML VIAL IM ONE (13:30)
[2023-09-03] MEDS ORDERED: HYDROmorphone HCL 1 MG/ML SYR IV PRN (14:00)
[2023-09-03] MEDS ORDERED: DICYCLOMINE HCL 10 MG CAP PO PRN (23:30)
[2023-09-04] VITALS (10 sets, daily range): BP systolic 98–164; BP diastolic 55–90
[2023-09-04 08:34] LABS: BASOPHILS 0.2 % (0-2); EOSINOPHILS 1.8 % (0-6); HEMATOCRIT 30.6 % (35.0-50.0); HEMOGLOBIN 10.5 g/dL (12.0-18.0); LYMPHOCYTES 11.1 % (24-44); MCH 32.2 (27-36); MCHC 34.4 g/dl (30-36); MCV 93.6 fl (81-99); MONOCYTES 8.3 % (0-12); NEUTROPHILS 78.6 % (39-80); PLATELET COUNT 146 K/uL (140-440); RBC 3.27 M/ul (4.3-5.7); RDW 15.4 (10.5-15.0)
[2023-09-04 08:45] LABS: BUN/CREATININE RATIO 13.48 (6.0-28.6); CALCIUM 7.7 mg/dL (8.5-10.1); CREATININE, SERUM 0.89 mg/dL (0.55-1.02); POTASSIUM 3.3 mmol/L (3.5-5.1)
[2023-09-04] MEDS ORDERED: DIGOXIN 500 MCG/2 ML AMP IV SCH (09:00)
[2023-09-04 09:01] LABS: ANION GAP 12.3 (7-21)
--- NOTE | 2023-09-04 11:17 | EKG ---
[facility] [address] [facility] [place], [place] [address] Signed Atrial fibrillation with rapid ventricular response with premature ventricular or aberrantly conducted complexes ST depression, consider subendocardial injury Nonspecific T wave abnormality Abnormal ECG No previous ECGs available Confirmed by ADOLFO CHAN MD ([id number]) on 09/04/2023 11:17:40 AM Electronically Signed By: ADOLFO CHAN 09/04/23 1117 PATIENT NAME: NISSAOZZYDANNY Electrocardiogram DATE OF : 41 PHYSICIAN: ADOLFO CHAN REPORT #: [id number] REPORT IS CONFIDENTIAL AND NOT TO BE RELEASED WITHOUT AUTHORIZATION
--- NOTE | 2023-09-04 11:19 | EKG ---
[facility] [address] [facility] [place], [place] [address] Signed Atrial fibrillation with rapid ventricular response Possible Anterior infarct , age undetermined Abnormal ECG When compared with ECG of 03-SEP-2023 10:58, (Unconfirmed) No significant change was found Confirmed by ADOLFO CHAN MD ([id number]) on 09/04/2023 11:18:50 AM Electronically Signed By: ADOLFO CHAN 09/04/23 1119 PATIENT NAME: LES VARGASJunior GUZMANVANESSA Electrocardiogram DATE OF : 41 PHYSICIAN: ADOLFO CHAN REPORT #: [id number] REPORT IS CONFIDENTIAL AND NOT TO BE RELEASED WITHOUT AUTHORIZATION
[2023-09-04] MEDS ORDERED: MIDAZOLAM HCL 5 MG/5 ML VIAL ONE (14:56)
[2023-09-04] MEDS ORDERED: fentaNYL citrate 100 MCG/2 ML VIAL ONE (14:56)
[2023-09-04] MEDS ORDERED: ALBUTEROL SULFATE 0.083% 3 ML VIAL ONE (15:37)
[2023-09-04] MEDS ORDERED: FUROSEMIDE 20 MG/2 ML VIAL ONE (15:38)
[2023-09-04] MEDS ORDERED: FUROSEMIDE 20 MG/2 ML VIAL IV ONE (15:45)
[2023-09-04] MEDS ORDERED: ALBUTEROL SULFATE 0.083% 3 ML VIAL INH ONE (15:45)
[2023-09-04] MEDS ORDERED: POTASSIUM CHLORIDE 10 MEQ TABCR PO ONE ×2 (16:15→18:00)
[2023-09-04] MEDS ORDERED: POTASSIUM CHLORIDE 10 MEQ TABCR ONE (20:19)
[2023-09-05 05:41] LABS: BASOPHILS 0.4 % (0-2); EOSINOPHILS 3.1 % (0-6); HEMATOCRIT 32.7 % (35.0-50.0); HEMOGLOBIN 11.1 g/dL (12.0-18.0); LYMPHOCYTES 12.3 % (24-44); MCH 31.8 (27-36); MCV 93.6 fl (81-99); MONOCYTES 8.5 % (0-12); NEUTROPHILS 75.7 % (39-80); PLATELET COUNT 145 K/uL (140-440); RDW 15.4 (10.5-15.0)
[2023-09-05 05:42] VITALS: BP 125/76
[2023-09-05 05:51] LABS: ANION GAP 15.5 (7-21); BUN/CREATININE RATIO 10.71 (6.0-28.6); CALCIUM 7.8 mg/dL (8.5-10.1); CREATININE, SERUM 0.84 mg/dL (0.55-1.02); MAGNESIUM 1.8 mg/dL (1.8-2.4); POTASSIUM 3.5 mmol/L (3.5-5.1)
[2023-09-05] MEDS ORDERED: FUROSEMIDE 20 MG/2 ML VIAL IV ONE (09:15)
[2023-09-05] MEDS ORDERED: POTASSIUM CHLORIDE 10 MEQ TABCR PO ONE (09:15)
[2023-09-05 09:39] VITALS: BP 141/72
[2023-09-05 10:32] VITALS: BP 141/72
[2023-09-05] MEDS ORDERED: DICYCLOMINE HCL10 MG PO (12:49)
[2023-09-05] MEDS ORDERED: CIPROFLOXACIN250 MG PO (12:51)
[2023-09-05] MEDS ORDERED: METRONIDAZOLE500 MG PO (12:52)
[2023-09-05] MEDS ORDERED: DIGOXIN250 MCG PO (12:53)
[2023-09-05] MEDS ORDERED: SENOKOT8.6 MG PO (13:05)
[2023-09-05] MEDS ORDERED: MIRALAX119 GM PO (13:05)
--- NOTE | 2023-09-05 13:37 | OR ---
[facility] [address], [place] [address] Signed DATE OF OPERATION: 09/04/2023 SURGEON: Emerita Moyer MD PREOPERATIVE DIAGNOSES: Left-sided colitis, chronic long-standing constipation, possible stercoral colitis. POSTOPERATIVE DIAGNOSES: Inflammation of rectum, left colon, transverse, and portion of right colon; elevated white plaques of mucosa without pseudomembranes most consistent with probable stercoral colitis. PROCEDURE: Colonoscopy with multiple biopsies. ANESTHESIA: Intravenous sedation; fentanyl 150 mcg and Versed 3 mg. INDICATION: This frail and elderly 77-year-old white woman presented to the emergency room on September 01, 2023 with left-sided abdominal pain and long-standing chronic constipation. She had no diarrhea or blood per rectum. A CT scan was performed, which showed inflammation of the left colon and in my opinion, a fair amount of stool burden. She was admitted by the hospitalist service, given intravenous fluids and parenteral pain control methods and antibiotic therapy. Cleansing of the colon from below (enemas, etc.) followed by MiraLAX bowel prep and subsequently magnesium citrate "chaser" bowel prep has allowed for passage of fair amount of probably impacted stool, though she still has some abdominal distention and liquid stool within the colon. Colonoscopy has been recommended to better assess the nature of the colitis. 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 The risk of bleeding, infection, and perforation related to colonoscopy was reviewed with the patient. She understands and wished to proceed. FINDINGS: A marginal bowel prep was noted. The stool was mostly liquid. There is only minimal amount of solid material. Colonoscopy was taken to the mid ascending colon. Involvement throughout included edematous changes, blurring of blood vessels, but no actual ulcerations. There were whitish mucosal nodules most dominantly in the right side and transverse, but to a lesser extent the left side as well. These were biopsied and random biopsies undertaken. There is no evidence of pseudomembrane or other similar finding. Electronically Signed By: EMERITA MOYER MD 09/05/23 1337 PATIENT NAME: DANNY VARGAS OPERATIVE REPORT DATE OF : 41 REPORT #: [id number] PHYSICIAN: EMERITA MOYER MD PCP: ADITI KURTZ MD REPORT IS CONFIDENTIAL AND NOT TO BE RELEASED WITHOUT AUTHORIZATION [facility] [address], [place] [address] Signed DESCRIPTION OF PROCEDURE: The patient was brought to the endoscopy suite and placed in the lateral decubitus position, given intravenous sedation to the point of slurred speech and nystagmus with full cardiopulmonary monitoring. Care was taken given her underlying frailty. Digital rectal examination showed a fair amount of semi-solid stool, mostly liquid actually. The Olympus video colonoscope was passed in the rectum and irrigation undertaken as appropriate. The scope was manipulated throughout the colon, passed beyond the transverse colon to the right colon. Irrigation was undertaken where semi- formed stool was noted there. Irrigation of the mucosa showed it to be somewhat inflamed and with white/yellow elevated plaque-like nodules. English And Reading Instructor nodules were biopsied as was normal mucosa. Biopsies were taken upon withdrawal of the scope, including transverse colon, left colon, sigmoid and rectum. Retroflexed view was normal. The scope was removed and the patient was taken to the recovery room in good condition. CONCLUDING DIAGNOSIS: Underlying inflammatory processes of uncertain etiology. 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 There is no sign of actual ulcerative lesion proper and certainly there is no evidence of stricture. She did have some diverticula which were secondarily noted to be inflamed related to the edema of the underlying mucosal process. Dr. Rodgers, her hospitalist was in attendance during the procedure. She will return to the ongoing care of Dr. Rodgers. MD SANTOSH Conrad/MODL /[id number] cc: Dr. Rodgers Copies: ~ Electronically Signed By: EMERITA MOYER MD 09/05/23 1337 PATIENT NAME: DANNY VARGAS OPERATIVE REPORT DATE OF : 41 REPORT #: [id number] PHYSICIAN: EMERITA MOYER MD PCP: ADITI KURTZ MD REPORT IS CONFIDENTIAL AND NOT TO BE RELEASED WITHOUT AUTHORIZATION
[2023-09-05 13:40] VITALS: BP 135/75
--- NOTE | 2023-09-05 16:26 | PATH ---
[facility] [address] [facility] [place], [place] [address] Signed SPECIMEN(S): A ASCENDING/RIGHT COLON BIOPSY SPECIMEN(S): B SPLENIC FLEXURE COLON BIOPSY SPECIMEN(S): C SIGMOID COLON BIOPSY SPECIMEN(S): D RECTUM BIOPSY SPECIMEN SOURCE: A. ASCENDING/RIGHT COLON BIOPSY B. SPLENIC FLEXURE COLON BIOPSY C. SIGMOID COLON BIOPSY D. RECTUM BIOPSY CLINICAL HISTORY: Colitis. Post-op: Stercoral colitis. FINAL PATHOLOGIC DIAGNOSIS: A. Colon, ascending/right, biopsy: - Colonic mucosa with no significant pathologic changes B. Colon, splenic flexure, biopsy: - Colonic mucosa with focal surface erosion C. Colon, sigmoid, biopsy: - Colonic mucosa with focal active colitis D. Rectum, biopsy: - Colonic mucosa with focal active colitis BRP MICROSCOPIC EXAMINATION: Histologic sections of all submitted blocks are examined by light microscopy. These findings, together with the gross examination, support the pathologic diagnosis. GROSS DESCRIPTION: A. The specimen, labeled and designated "Albro, ascending/right colon biopsy," is received in formalin and consists of three doyle soft tissue fragments, ranging from 0.2-0.3 cm. Entirely submitted in (A1). B. The specimen, labeled and designated "Albro, splenic flexure colon biopsy," is received in formalin and consists of three doyle soft tissue fragments, ranging from 0.2-0.7 cm. Entirely submitted in (B1). C. The specimen, labeled and designated "Albro, sigmoid colon biopsy," is received in formalin and consists of two doyle soft tissue fragments, ranging PATIENT NAME: DANNY VARGAS PATHOLOGY DATE OF : 41 REPORT #: [id number] PHYSICIAN: DEBBIE LEOS PCP: ADITI KURTZ MD REPORT IS CONFIDENTIAL AND NOT TO BE RELEASED WITHOUT AUTHORIZATION [facility] [address] [place], [place] [address] Signed from 0.2-0.6 cm. Entirely submitted in (C1). D. The specimen, labeled and designated "Abigail, rectum biopsy," is received in formalin and consists of three doyle soft tissue fragments, ranging from 0.1-0.4 cm. Entirely submitted in (D1). VB (under the direct supervision of a pathologist) The Gross Description was prepared using a voice recognition system. The report was reviewed for accuracy; however, sound-alike word errors, addition and/or deletions may occur. If there is any question about this report, please contact Client Services. ADDITIONAL NOTES: Immunohistochemical and/or in situ hybridization studies if performed in this case included appropriate positive controls that reacted as expected. This test was developed and its performance characteristics determined by [email or web address]. It has not been cleared or approved by the U.S. Food and Drug Administration. The FDA has determined that such clearance or approval is not necessary. This test is used for clinical purposes. It should not be regarded as investigational or for research. [facility] is certified under the Clinical Laboratory Improvement Amendments of 1988 (CLIA) as qualified to perform high complexity clinical laboratory testing. PERFORMING LABORATORY: Technical component was performed by [email or web address], [address] [place] [id number] (CLIA# [id number]). Professional interpretation was performed by [facility] [address] [place] [id number] Diagnostician: Terry Concepcion MD Pathologist Electronically Signed 09/05/2023 Copies: ~ PATIENT NAME: DANNY VARGAS PATHOLOGY DATE OF : 41 REPORT #: [id number] PHYSICIAN: DEBBIE LEOS PCP: ADITI KURTZ MD REPORT IS CONFIDENTIAL AND NOT TO BE RELEASED WITHOUT AUTHORIZATION
== END 2023-09-05 14:18 | disposition home or self-care (01) | DRG 387 ==
LOC: ED 22:22 → MS 22:24
PROVIDERS: Emergency Medicine; Internal Medicine; Surgery; ADMIT Family Medicine; ATTEND Family Medicine
PROC: 0DBL8ZX Excision of Transverse Colon, Via Natural or Artificial Opening Endoscopic, Diagnostic (ICD-10-PCS; 2023-09-04)
PROC: 0DBN8ZX Excision of Sigmoid Colon, Via Natural or Artificial Opening Endoscopic, Diagnostic (ICD-10-PCS; 2023-09-04)
PROC: 0DBP8ZX Excision of Rectum, Via Natural or Artificial Opening Endoscopic, Diagnostic (ICD-10-PCS; 2023-09-04)
PROC: 0DBK8ZX Excision of Ascending Colon, Via Natural or Artificial Opening Endoscopic, Diagnostic (ICD-10-PCS; principal; 2023-09-04 15:02)
DX: K51.90 Ulcerative colitis, unspecified, without complications (principal); I48.91 Unspecified atrial fibrillation; E87.6 Hypokalemia; I50.9 Heart failure, unspecified; K57.30 Diverticulosis of large intestine without perforation or abscess without bleeding; E83.42 Hypomagnesemia; Z89.422 Acquired absence of other left toe(s); Z89.421 Acquired absence of other right toe(s); Z98.890 Other specified postprocedural states; Z88.8 Allergy status to other drugs, medicaments and biological substances; Z79.899 Other long term (current) drug therapy; Z79.01 Long term (current) use of anticoagulants; Z95.0 Presence of cardiac pacemaker; Z86.73 Personal history of transient ischemic attack (TIA), and cerebral infarction without residual deficits; Z86.14 Personal history of Methicillin resistant Staphylococcus aureus infection
CPT/HCPCS: 36415; 71045; 74018; 74176; 74177; 80048; 80053; 81001; 83690; 83735; 83880; 84100; 84484; 85025; 87088; 88305; 93005; 93010; 94640; 94760; 94762; 96375; 96376; 97110; 97116; 97161; 97166; 97530; 97535; 99153; 99285-25; A9270; G0378; G0500; J0744; J1160; J1170; J1200; J1885; J1940; J2060; J2250; J2405; J3010; J3475; J3480; J3490; J7030; J7060; J7121; Q9967

== ENCOUNTER 2024-03-09 00:41 | Emergency (ER) | payer MEDICARE, OTHER ==
[~2024-03-09] VITALS: Ht 172.7 cm; Wt 67.2 kg
[~2024-03-09 00:41] MED LIST changes: +CIPROFLOXACIN250 MG PO; +DICYCLOMINE HCL10 MG PO; +DIGOXIN250 MCG PO; +METRONIDAZOLE500 MG PO; +MIRALAX119 GM PO; +PRAMIPEXOLE D0.25 MG PO; +SENOKOT8.6 MG PO
[2024-03-09 01:18] LABS: BASOPHILS 0.9 % (0-2); EOSINOPHILS 2.6 % (0-6); HEMATOCRIT 35.6 % (35.0-50.0); HEMOGLOBIN 12.2 g/dL (12.0-18.0); LYMPHOCYTES 39.1 % (24-44); MCH 33.2 (27-36); MCHC 34.2 g/dl (30-36); MCV 96.9 fl (81-99); MONOCYTES 10.9 % (0-12); NEUTROPHILS 46.5 % (39-80); PLATELET COUNT 127 K/uL (140-440); RBC 3.68 M/ul (4.3-5.7)
[2024-03-09 01:29] LABS: ALBUMIN 3.6 g/dL (3.4-5.0); ALBUMIN/GLOBULIN RATIO 1.13 (1.1-2.4); ANION GAP 13.1 (7-21); BILIRUBIN, TOTAL 0.9 ng/dL (0.2-1.0); BUN/CREATININE RATIO 25.8 (6.0-28.6); CALCIUM 8.9 mg/dL (8.5-10.1); CREATININE, SERUM 0.93 mg/dL (0.55-1.02); POTASSIUM 4.1 mmol/L (3.5-5.1); PROTEIN, TOTAL 6.8 g/dL (6.4-8.2)
[2024-03-09 02:13] LABS: BILIRUBIN, URINE NEGATIVE (negative); BLOOD/HGB, URINE NEGATIVE (Negative); KETONE, URINE NEGATIVE (Negative); LEUK ESTERASE, URINE NEGATIVE (negative); NITRITE, URINE NEGATIVE (negative)
[2024-03-09] MEDS ORDERED: HYDROCODON-ACE1 EA10 PO (02:43)
[2024-03-09] MEDS ORDERED: HYDROCODONE BIT/ACETAMINOPHEN 5/325 MG 1 TAB HOME.PACK PO PRN (02:45)
[2024-03-09 03:02] VITALS: BP 148/81
== END 2024-03-09 02:59 | disposition home or self-care (01) ==
LOC: ED 00:41
PROVIDERS: Emergency Medicine
DX: R10.31 Right lower quadrant pain (principal); I50.9 Heart failure, unspecified; Z86.73 Personal history of transient ischemic attack (TIA), and cerebral infarction without residual deficits; Z96.653 Presence of artificial knee joint, bilateral; Z88.8 Allergy status to other drugs, medicaments and biological substances; Z79.899 Other long term (current) drug therapy; Z79.01 Long term (current) use of anticoagulants
CPT/HCPCS: 36415; 74177; 80053; 81003; 83690; 85025; 99284-25

== ENCOUNTER 2024-07-04 12:02 | Emergency (ER) | payer OTHER, MEDICARE ==
[~2024-07-04] VITALS: Ht 172.7 cm; Wt 80.0 kg
[2024-07-04] MEDS ORDERED: LACTATED RINGER'S 1,000 ML IV ONE (12:15)
[2024-07-04 12:29] LABS: BASOPHILS 0.8 % (0-2); EOSINOPHILS 1.7 % (0-6); HEMATOCRIT 42.8 % (35.0-50.0); HEMOGLOBIN 14.3 g/dL (12.0-18.0); LYMPHOCYTES 29.3 % (24-44); MCH 33.8 (27-36); MCHC 33.4 g/dl (30-36); MONOCYTES 8.8 % (0-12); NEUTROPHILS 59.4 % (39-80); PLATELET COUNT 169 K/uL (140-440); RBC 4.24 M/ul (4.3-5.7); RDW 14.5 (10.5-15.0)
[2024-07-04 12:42] LABS: ALBUMIN/GLOBULIN RATIO 1.08 (1.1-2.4); ALCOHOL, MEDICAL <3 ng/dL (<3); ALKALINE PHOSPHATASE 143 U/L (46-116); ALT (SGPT) 19 U/L (14-59); ANION GAP 10.3 (7-21); AST (SGOT) 11 U/L (15-37); BUN/CREATININE RATIO 22.85 (6.0-28.6); CALCIUM 8.5 mg/dL (8.5-10.1); CARBON DIOXIDE 30 mmol/L (21-32); CHLORIDE 107 mmol/L (98-107); CREATININE, SERUM 1.05 mg/dL (0.55-1.02); GLOMERULAR FILTRATION RATE,EST 54 mL/min (>60); POTASSIUM 4.3 mmol/L (3.5-5.1); PROTEIN, TOTAL 7.7 g/dL (6.4-8.2); UREA NITROGEN 24 mg/dL (7-18)
[2024-07-04 13:00] LABS: ABO O; ANTIBODY SCREEN NEGATIVE; RH POSITIVE
[2024-07-04] MEDS ORDERED: DIGOXIN250 MCG PO (13:15)
[2024-07-04] MEDS ORDERED: ESTRADIOL42.5 GM PV (13:17)
[2024-07-04] MEDS ORDERED: MIRABEGRON ER25 MG PO (13:17)
[2024-07-04 16:34] VITALS: BP 130/78
== END 2024-07-04 16:34 | disposition home or self-care (01) ==
LOC: ED 12:02
PROVIDERS: Emergency Medicine
DX: S40.011A Contusion of right shoulder, initial encounter (principal); S09.90XA Unspecified injury of head, initial encounter; I48.91 Unspecified atrial fibrillation; I50.9 Heart failure, unspecified; Z95.0 Presence of cardiac pacemaker; Z88.6 Allergy status to analgesic agent; Z88.8 Allergy status to other drugs, medicaments and biological substances; Z79.01 Long term (current) use of anticoagulants; Z79.899 Other long term (current) drug therapy; V87.8XXA Person injured in other specified noncollision transport accidents involving motor vehicle (traffic), initial encounter
CPT/HCPCS: 36415; 70450; 72125; 73030; 80053; 80307; 85025; 86850; 86900; 86901; 99284-25; G0480; J7121

== ENCOUNTER 2024-08-18 12:55 | Emergency (ER) | payer MEDICARE, OTHER ==
[~2024-08-18] VITALS: Ht 172.7 cm; Wt 64.9 kg
[~2024-08-18 12:55] MED LIST changes: +ESTRADIOL42.5 GM PV; +MIRABEGRON ER25 MG PO
[2024-08-18] MEDS ORDERED: OXYCODONE/APAP 5/325 TAB PO ONE (13:45)
[2024-08-18] MEDS ORDERED: LIDOCAINE HCL 4% 1 EACH PATCH TD ONE (13:45)
[2024-08-18] MEDS ORDERED: OXYCODONE HCL5 MG PO (15:45)
[2024-08-18] MEDS ORDERED: ONDANSETRON ODT8 MG PO (15:45)
[2024-08-18 16:00] VITALS: BP 129/70
[2024-08-18] MEDS ORDERED: LIDOCAINE PATCH REMOVAL 1 EA TD SCH (21:00)
== END 2024-08-18 16:03 | disposition home or self-care (01) ==
LOC: ED 12:55
DX: S27.321A Contusion of lung, unilateral, initial encounter (principal); R91.8 Other nonspecific abnormal finding of lung field; I50.9 Heart failure, unspecified; I48.91 Unspecified atrial fibrillation; Z86.73 Personal history of transient ischemic attack (TIA), and cerebral infarction without residual deficits; Z95.0 Presence of cardiac pacemaker; Z89.422 Acquired absence of other left toe(s); Z88.6 Allergy status to analgesic agent; Z89.421 Acquired absence of other right toe(s); Z88.8 Allergy status to other drugs, medicaments and biological substances; Z79.01 Long term (current) use of anticoagulants; Z79.899 Other long term (current) drug therapy; Z96.653 Presence of artificial knee joint, bilateral; W18.30XA Fall on same level, unspecified, initial encounter
CPT/HCPCS: 70450; 71250; 72192; 99283-25; A9270

== ENCOUNTER 2024-10-15 09:39 | Emergency (ER) | payer OTHER, MEDICARE ==
[~2024-10-15] VITALS: Ht 172.7 cm; Wt 64.0 kg
[~2024-10-15 09:39] MED LIST changes: +ONDANSETRON ODT8 MG PO; +OXYCODONE HCL5 MG PO
[2024-10-15] MEDS ORDERED: HYDROCODON-ACE1 EA10 PO (11:49)
[2024-10-15 11:55] VITALS: BP 140/91
== END 2024-10-15 11:55 | disposition home or self-care (01) ==
LOC: ED 09:39
DX: S93.401A Sprain of unspecified ligament of right ankle, initial encounter (principal); I50.9 Heart failure, unspecified; I48.91 Unspecified atrial fibrillation; X50.1XXA Overexertion from prolonged static or awkward postures, initial encounter; Y92.39 Other specified sports and athletic area as the place of occurrence of the external cause
CPT/HCPCS: 70450; 71045; 72125; 73560; 73610; 99284-25

== ENCOUNTER 2024-12-20 03:53 | Emergency (ER) | payer MEDICARE, OTHER ==
[~2024-12-20] VITALS: Ht 172.7 cm; Wt 67.1 kg
--- OUTSIDE RECORDS SUMMARY | ~2024-12-20 | XMS | Continuity of Care Document ---
Demographics + + + | Address | [address] | | | [place] [address] | + + + | Preferred Language | Unknown | + + + | Marital Status | Unknown | + + + | Congregation Affiliation | Unknown | + + + | Race | White | + + + | Ethnic Group | Not or | + + + Author + + + | Author | [facility] | + + + | Organization | [facility] | + + + | Address | [address] | | | [place] [address] | + + + | Phone | | + + + Care Team Providers + + + + | Care Cutter And Presser Name | Role | Phone | + [...]
[2024-12-20 04:16] LABS: BASOPHILS 0.8 % (0.1-1.2); EOSINOPHILS 2.8 % (0.7-5.8); HEMOGLOBIN 12.7 g/dL (11.2-15.7); LYMPHOCYTES 37.3 % (19.3-51.7); MCH 33.5 PG (25.6-32.2); MCHC 32.6 g/dL (32.2-35.5); MCV 102.9 fL (79.4-94.8); NEUTROPHILS 49.8 % (34.0-71.1); PLATELET COUNT 136 K/uL (182-369); RBC 3.79 M/uL (3.93-5.22)
[2024-12-20 04:31] LABS: ALBUMIN 3.7 g/dL (3.4-5.0); ALBUMIN/GLOBULIN RATIO 1.09 (1.1-2.4); ALCOHOL, MEDICAL <3 ng/dL (<3); ALKALINE PHOSPHATASE 121 U/L (46-116); ALT (SGPT) 22 U/L (14-59); ANION GAP 10.2 (7-21); AST (SGOT) 15 U/L (15-37); BILIRUBIN, TOTAL 0.6 mg/dL (0.2-1.0); BUN/CREATININE RATIO 25.45 (6.0-28.6); CALCIUM 9.1 mg/dL (8.5-10.1); CARBON DIOXIDE 29 mmol/L (21-32); CHLORIDE 107 mmol/L (98-107); GLOMERULAR FILTRATION RATE,EST 50 mL/min (>60); POTASSIUM 4.2 mmol/L (3.5-5.1); PROTEIN, TOTAL 7.1 g/dL (6.4-8.2); UREA NITROGEN 28 mg/dL (7-18)
[2024-12-20] MEDS ORDERED: TRAMADOL HCL 50 MG HOME.PACK PO ONE (06:00)
[2024-12-20 06:26] VITALS: BP 143/89
== END 2024-12-20 06:15 | disposition home or self-care (01) ==
LOC: ED 03:53
PROVIDERS: Family Medicine
DX: S09.90XA Unspecified injury of head, initial encounter (principal); S13.4XXA Sprain of ligaments of cervical spine, initial encounter; I48.91 Unspecified atrial fibrillation; W06.XXXA Fall from bed, initial encounter; Z79.899 Other long term (current) drug therapy; Z88.1 Allergy status to other antibiotic agents; Z86.73 Personal history of transient ischemic attack (TIA), and cerebral infarction without residual deficits
CPT/HCPCS: 36415; 70450; 71045; 72125; 80053; 85025; 99284-25; A9270; G0480

== ENCOUNTER 2025-01-06 17:33 | Emergency (ER) | payer OTHER, MEDICARE ==
[~2025-01-06] VITALS: Ht 172.7 cm; Wt 64.0 kg
--- OUTSIDE RECORDS SUMMARY | ~2025-01-06 | XMS | Continuity of Care Document ---
Demographics + + + | Address | [address] | | | [place] [address] | + + + | Preferred Language | Unknown | + + + | Marital Status | Unknown | + + + | Yazidi Affiliation | Unknown | + + + | Race | White | + + + | Ethnic Group | Not or | + + + Author + + + | Author | [facility] | + + + | Organization | [facility] | + + + | Address | [address] | | | [place] [address] | + + + | Phone | | + + + Care Team Providers + + + + | Care Hydro Operator Name | Role | Phone | + + + + Unavailable | Unavailable | + + + + Allergies No information. Encounters No information. Functional Status No information. Immunizations No information. Medications No information. Problems + + + + | date | description | facility | + + + + | 2024 10:57:05 | Other chronic pain | [facility] | + + + + | 2024 10:57:05 | Pain in right ankle and | [facility] | | | joints of right foot | | + + + + | 2024 10:57:05 | Pain in right leg | [facility] | + + + + | 2024-11-03 22:41:45 | Other chronic pain | [facility] | + + + + | 2024-11-03 22:41:45 | Pain in right ankle and | [facility] | | | joints of right foot | | + + + + | 2024-11-03 22:41:45 | Pain in right leg | [facility] | + + + + Procedures No information. Results/Labs No information. Social History +--------+ + + | date | description | facility | +--------+ + + Vital Signs No information."
[2025-01-06] MEDS ORDERED: HYDROCODONE/ACETA 5/325 TAB PO ONE (19:45)
[2025-01-06] MEDS ORDERED: HYDROCODON-ACE1 EA10 PO (21:00)
[2025-01-06] MEDS ORDERED: HYDROCODONE BIT/ACETAMINOPHEN 5/325 MG 1 TAB HOME.PACK PO ONE (21:15)
[2025-01-06 21:40] VITALS: BP 95/80
== END 2025-01-06 21:43 | disposition home or self-care (01) ==
LOC: ED 17:33
DX: S52.125A Nondisplaced fracture of head of left radius, initial encounter for closed fracture (principal); M25.422 Effusion, left elbow; Z86.73 Personal history of transient ischemic attack (TIA), and cerebral infarction without residual deficits; I50.9 Heart failure, unspecified; I48.91 Unspecified atrial fibrillation; Z88.8 Allergy status to other drugs, medicaments and biological substances; W01.0XXA Fall on same level from slipping, tripping and stumbling without subsequent striking against object, initial encounter
CPT/HCPCS: 73080; 99283; A9270

== ENCOUNTER 2025-04-08 18:00 | Emergency (ER) | payer MEDICARE, OTHER ==
--- NOTE | ~2025-04-08 | EKG ---
[facility] [address] [facility] [place], [place] [address] Draft EK completed, results pending confirmation PATIENT NAME: DANNY VARGAS Electrocardiogram DATE OF : 41 PHYSICIAN: PRELIMINARY REPORT #: [id number] REPORT IS CONFIDENTIAL AND NOT TO BE RELEASED WITHOUT AUTHORIZATION
[2025-04-08] MEDS ORDERED: ACETAMINOPHEN 325 MG TAB PO ONE (19:15)
[2025-04-08 19:40] VITALS: BP 116/82
== END 2025-04-08 19:42 | disposition home or self-care (01) ==
LOC: ED 18:00
DX: S16.1XXA Strain of muscle, fascia and tendon at neck level, initial encounter (principal); S09.90XA Unspecified injury of head, initial encounter; I48.91 Unspecified atrial fibrillation; I50.9 Heart failure, unspecified; Z95.0 Presence of cardiac pacemaker; Z86.73 Personal history of transient ischemic attack (TIA), and cerebral infarction without residual deficits; Z88.8 Allergy status to other drugs, medicaments and biological substances; Z79.01 Long term (current) use of anticoagulants; Z79.899 Other long term (current) drug therapy; W18.30XA Fall on same level, unspecified, initial encounter
CPT/HCPCS: 70450; 72125; 93005; 93010; 99284-25; A9270

== ENCOUNTER 2025-05-19 00:38 | Emergency (ER) | payer MEDICARE, OTHER ==
[~2025-05-19] VITALS: Ht 172.7 cm; Wt 64.0 kg
--- OUTSIDE RECORDS SUMMARY | ~2025-05-19 | XMS | Continuity of Care Document ---
Demographics + + + | Address | [address] | | | [place] [address] | + + + | Preferred Language | Unknown | + + + | Marital Status | | + + + | Restorationist Affiliation | Unknown | + + + | Race | White | + + + | Ethnic Group | Not or | + + + Author + + + | Author | [facility] | + + + | Organization | [facility] | + + + | Address | [address] | | | [place] [address] | + + + | Phone | | + + + Care Team Providers + + + + | Care Children'S Ministry Director Name | Role | Phone | + + + + Unavailable | Unavailable | + + + + Unavailable | Unavailable | + + + + Allergies and Intolerances + + + + + + | date | description | facility | reaction | severity | + + + + + + | 2025-02-27 | Zolpidem | [facility] Hallucinations | Mild | | 00:00 | | [facility] | | | + + + + + + | 2025-02-27 | Zolpidem | [facility] - | Hallucinations | Mild | | 00:00 | | [facility] | | | + + + + + + | 2025-02-27 | Zolpidem | [facility] - | Hallucinations | Mild | | 00:00 | | [facility] | | | + + + + + + Encounters No information. Functional Status No information. Immunizations No information. Medications + + + + | date | description | facility | + + + + | (no date) | OXYCODONE | [facility] | | | HCL/ACETAMINOPHEN | [facility] | + + + + | (no date) | DOCUSATE SODIUM | [facility] | | | | [facility] | + + + + | (no date) | RIVAROXABAN | [facility] | | | | [facility] | + + + + | (no date) | Mirabegron | [facility] | | | | [facility] | + + + + | (no date) | APIXABAN | [facility] | | | | [facility] | + + + + | (no date) | POTASSIUM CHLORIDE | [facility] | | | | [facility] | + + + + | (no date) | SOTALOL HCL | [facility] | | | | [facility] | + + + + | (no date) | DIGOXIN | [facility] | | | | [facility] | + + + + | (no date) | | [facility] | | | SULFAMETHOXAZOLE/TRIMETHOPR | [facility] | | | IM | | + + + + | (no date) | FERROUS GLUCONATE | [facility] | | | | [facility] | + + + + | (no date) | Cholecalciferol (Vitamin | [facility] | | | D3) | [facility] | + + + + | (no date) | OMEPRAZOLE | [facility] | | | | [facility] | + + + + | (no date) | CALCIUM CARBONATE | [facility] | | | | [facility] | + + + + | (no date) | CYANOCOBALAMIN | [facility] | | | | [facility] | + + + + | (no date) | Estradiol | [facility] | | | | [facility] | + + + + | (no date) | FUROSEMIDE | [facility] | | | | [facility] | + + + + | (no date) | GABAPENTIN | [facility] | | | | [facility] | + + + + | (no date) | SERTRALINE HCL | [facility] | | | | [facility] | + + + + | (no date) | Solifenacin Succinate | [facility] | | | | [facility] | + + + + | (no date) | ATORVASTATIN CALCIUM | [facility] | | | | [facility] | + + + + | (no date) | PRAMIPEXOLE DI-HCL | [facility] | | | | [facility] | + + + + | (no date) | PRAMIPEXOLE DI-HCL | [facility] | | | | [facility] | + + + + | (no date) | BUPROPION HCL | [facility] | | | | [facility] | + + + + Problems No information. Procedures No information. Results/Labs No information. Social History +--------+ + + | date | description | facility | +--------+ + + Vital Signs + + +---------+---------+ | date | measurement | value | units | + + +---------+---------+ | 2025-02-27 00:00 | BP_diastolic | 97 | mmHg | + + +---------+---------+ | 2025-02-27 00:00 | BP_systolic | 111 | mmHg | + + +---------+---------+ | 2025-02-27 00:00 | heart_rate | 63 | /min | + + +---------+---------+ | 2025-02-27 00:00 | o2_saturation | 98 | % | + + +---------+---------+ | 2025-02-27 00:00 | respiration_rate | 16 | /min | + + +---------+---------+ | 2025-02-27 00:00 | | 97.4 | F | | | temperature_standar | | | | | d | | | + + +---------+---------+"
[2025-05-19 00:56] LABS: BASOPHILS 0.7 % (0.1-1.2); EOSINOPHILS 3.0 % (0.7-5.8); LYMPHOCYTES 33.1 % (19.3-51.7); MCH 33.3 PG (25.6-32.2); MCHC 33.3 g/dL (32.2-35.5); MCV 99.8 fL (79.4-94.8); MONOCYTES 9.9 % (4.7-12.5); NEUTROPHILS 52.7 % (34.0-71.1); RBC 4.21 M/uL (3.93-5.22)
[2025-05-19] MEDS ORDERED: MORPHINE SULFATE 4 MG/ML VIAL IV ONE (01:00)
[2025-05-19 01:17] LABS: ALT (SGPT) 34 U/L (14-59); AST (SGOT) 19 U/L (15-37); GLOMERULAR FILTRATION RATE,EST 52 mL/min (>60); PROTEIN, TOTAL 7.1 g/dL (6.4-8.2); UREA NITROGEN 36 mg/dL (7-18)
[2025-05-19 01:46] LABS: ALCOHOL, MEDICAL <3 ng/dL (<3)
[2025-05-19 02:15] VITALS: BP 92/58
== END 2025-05-19 02:15 | disposition home or self-care (01) ==
LOC: ED 00:38
PROVIDERS: Family Medicine
DX: S09.90XA Unspecified injury of head, initial encounter (principal); S16.1XXA Strain of muscle, fascia and tendon at neck level, initial encounter; W19.XXXA Unspecified fall, initial encounter; Z79.899 Other long term (current) drug therapy; Z88.1 Allergy status to other antibiotic agents
CPT/HCPCS: 36415; 70450; 72125; 80053; 80307; 85025; 99284-25; G0480

== ENCOUNTER 2025-06-26 22:05 | Emergency (ER) | payer MEDICARE, OTHER ==
[~2025-06-26] VITALS: Ht 172.7 cm; Wt 62.5 kg
[2025-06-26] MEDS ORDERED: MORPHINE SULFATE 4 MG/ML VIAL IV ONE (22:30)
[2025-06-26 22:52] LABS: BASOPHILS 0.7 % (0.1-1.2); EOSINOPHILS 2.3 % (0.7-5.8); LYMPHOCYTES 20.6 % (19.3-51.7); MCH 32.9 PG (25.6-32.2); MCHC 32.8 g/dL (32.2-35.5); MCV 100.3 fL (79.4-94.8); MONOCYTES 10.2 % (4.7-12.5); NEUTROPHILS 65.9 % (34.0-71.1); RBC 3.50 M/uL (3.93-5.22)
[2025-06-26] MEDS ORDERED: PRAMIPEXOLE DIHYDROCHLORIDE 0.5 MG TAB PO ONE (23:00)
[2025-06-26 23:14] LABS: INR 1.28 (0.80-1.30); PROTIME 15.2 Sec (11.2-14.2)
[2025-06-26 23:15] LABS: ALT (SGPT) 16.0 U/L (14-59); AST (SGOT) 27.0 U/L (15-37); GLOMERULAR FILTRATION RATE,EST 53.0 mL/min (>60); PROTEIN, TOTAL 6.7 g/dL (6.4-8.2); UREA NITROGEN 41.0 mg/dL (7-18)
[2025-06-27] MEDS ORDERED: TRANEXAMIC ACID IN NACL,ISO-OS 1,000 MG/100 ML PIGGYBACK IV ONE (01:00)
[2025-06-27 02:17] VITALS: BP 123/76
== END 2025-06-27 02:17 | disposition home or self-care (01) ==
LOC: ED 22:05
PROVIDERS: Family Medicine
DX: S70.01XA Contusion of right hip, initial encounter (principal); W18.30XA Fall on same level, unspecified, initial encounter; I50.9 Heart failure, unspecified; I48.91 Unspecified atrial fibrillation; Z88.8 Allergy status to other drugs, medicaments and biological substances; Z79.899 Other long term (current) drug therapy
CPT/HCPCS: 36415; 72193; 80053; 85025; 85610; 96374; 96375; 99284-25; J2270; J2405; Q9967